=== PATIENT | female | born 1950 | race Caucasian/White ===

== ENCOUNTER → 2017-01-28 | Outpatient (CLI) | payer OTHER | LOC: BMCIMAGING 09:38 | DX: Z12.31 Encounter for screening mammogram for malignant neoplasm of breast (principal) | CPT/HCPCS: G0202 ==

== ENCOUNTER → 2018-01-29 | Outpatient (CLI) | payer OTHER | LOC: BMCIMAGING 09:02 | PROVIDERS: ATTEND Internal Medicine | DX: Z12.31 Encounter for screening mammogram for malignant neoplasm of breast (principal); Z80.3 Family history of malignant neoplasm of breast ==

== ENCOUNTER → 2018-02-04 | Outpatient (CLI) | payer OTHER | LOC: BMCIMAGING 10:39 | PROVIDERS: ATTEND Internal Medicine | DX: Z13.820 Encounter for screening for osteoporosis (principal); M85.89 Other specified disorders of bone density and structure, multiple sites; E03.9 Hypothyroidism, unspecified; Z78.0 Asymptomatic menopausal state; Z79.52 Long term (current) use of systemic steroids ==

== ENCOUNTER → 2019-02-22 | Outpatient (CLI) | payer OTHER | LOC: BMCIMAGING 08:36 | PROVIDERS: ATTEND Internal Medicine | DX: Z12.31 Encounter for screening mammogram for malignant neoplasm of breast (principal); Z80.3 Family history of malignant neoplasm of breast ==

== ENCOUNTER → 2019-05-01 | Outpatient (CLI) | payer OTHER, BC | LOC: FCPNEURO 20:00 ==